=== PATIENT | male | born 1975 | race Two or more races ===

== ENCOUNTER 2024-04-05 16:14 | Emergency (ER) | payer OTHER ==
[~2024-04-05] VITALS: Ht 182.9 cm; Wt 84.4 kg
[2024-04-05 19:19] LABS: HEMATOCRIT 40.1 % (39.0-48.0); HEMOGLOBIN 13.8 g/dL (13-16.00); MEAN CELL VOLUME 92.2 fL (80.0-100.00); MEAN CORPUSCULAR HEMOGLOBIN 31.6 pg (27.00-32.0); MEAN CORPUSCULAR HGB CONC 34.3 g/dl (32.0-36.0); PLATELET COUNT 174 K/uL (150-450); RED BLOOD COUNT 4.35 M/uL (4.00-6.00)
[2024-04-05 19:43] LABS: ALBUMIN 4.2 gm/dL (3.4-5.0); BILIRUBIN TOTAL 0.67 mg/dL (0.3-1.2); CREATININE SERUM 1.41 mg/dL (0.70-1.30); GFR 54.11; GLOBULINA 3.6 G/DL (2.4-3.5); POTASSIUM 4.31 mEq/L (3.5-5.1); TOTAL PROTEIN 7.8 gm/dL (6.4-8.2)
[2024-04-05] MEDS ORDERED: OSEL75CA PO (21:05)
== END 2024-04-05 21:17 | disposition home or self-care (01) ==
LOC: ER 16:16
PROVIDERS: Preventive Medicine Public Health & General Preventive Medicine
DX: B34.9 Viral infection, unspecified (principal); J10.1 Influenza due to other identified influenza virus with other respiratory manifestations; Z20.822 Contact with and (suspected) exposure to COVID-19

== ENCOUNTER 2024-08-13 14:30 | Emergency (ER) | payer OTHER ==
[~2024-08-13] VITALS: Ht 182.9 cm; Wt 83.0 kg
[~2024-08-13 14:30] MED LIST: OSEL75CA PO
[2024-08-13 15:03] VITALS: BP 121/78; O2SAT 100
[2024-08-13] MEDS ORDERED: GUAIFENESIN/DEXTROMETHORPHAN 100MG/10ML BLIST.PACK PO ONE ×3 (17:15→17:36)
[2024-08-13] MEDS ORDERED: ACETAMINOPHEN 500 MG GEL..CAP PO ONE ×2 (17:15→17:35)
[2024-08-13] MEDS ORDERED: ONDANSETRON HCL 2 MG/ML VIAL IV ONE (17:15)
[2024-08-13] MEDS ORDERED: ONDANSETRON HCL 2 MG/ML VIAL ONE (17:36)
[2024-08-13 18:32] LABS: HEMOGLOBIN 14.1 g/dL (13-16.00); MEAN CELL VOLUME 93.2 fL (80.0-100.00); MEAN CORPUSCULAR HEMOGLOBIN 31.2 pg (27.00-32.0); MEAN CORPUSCULAR HGB CONC 33.5 g/dl (32.0-36.0); PLATELET COUNT 226 K/uL (150-450); RED BLOOD COUNT 4.51 M/uL (4.00-6.00); RED CELL DISTRIBUTION WIDTH 11.9 % (11.5-14.5)
[2024-08-13 19:15] LABS: COVID-19 AG NEGATIVE (NEGATIVE)
[2024-08-13 19:18] LABS: INFLUENZA A AG NEGATIVE (NEGATIVE)
[2024-08-13] MEDS ORDERED: GILTUSS COUGH-118 M1 PO (20:45)
[2024-08-13] MEDS ORDERED: ZITHROMAX TRI-500 MG PO (20:45)
[2024-08-13] MEDS ORDERED: ACETAMINOPHEN500 M1 PO (20:45)
== END 2024-08-13 21:03 | disposition home or self-care (01) ==
LOC: ER 14:31
PROVIDERS: Preventive Medicine Public Health & General Preventive Medicine
DX: J06.9 Acute upper respiratory infection, unspecified (principal); Z20.822 Contact with and (suspected) exposure to COVID-19